=== PATIENT | female | born 1990 | race Caucasian/White ===

== ENCOUNTER 2018-06-05 00:32 | Emergency (ER) | payer OTHER ==
[2018-06-05] MEDS: HYDROCODONE/APAP (10/325) TAB PO ×2 (02:32→02:35)
[2018-06-05] MEDS: DIPHTH/TET/ACEL PERTUSS (ADULT) 0.5 ML VIAL IM* (02:32)
[2018-06-05] MEDS: IBUPROFEN 600 MG TAB PO (02:55)
[2018-06-05] MEDS: SILVER SULFADIAZINE 1% 25 GM CR TOP (02:58)
== END 2018-06-05 03:43 | disposition home or self-care (01) ==
LOC: FTE 00:32
DX: T23.271A Burn of second degree of right wrist, initial encounter (principal); S20.219A Contusion of unspecified front wall of thorax, initial encounter; T23.201A Burn of second degree of right hand, unspecified site, initial encounter; V49.50XA Passenger injured in collision with unspecified motor vehicles in traffic accident, initial encounter; X19.XXXA Contact with other heat and hot substances, initial encounter; Z23 Encounter for immunization
CPT/HCPCS: 16000; 71046; 73110-RT; 73130-RT; 81025; 90471; 90715; 99284-25